=== PATIENT | male | born 1945 | race Caucasian/White ===

== ENCOUNTER 2018-12-04 09:21 | Inpatient (IN) ==
[2018-12-04] MEDS ORDERED: *HR* Morphine Immed Rel 15 MG TABLET PO STA (09:34)
--- NOTE | 2018-12-04 09:38 | Emergency Department Note ---
Disposition Clinical Impression: Hematoma of right lower extremity Qualifiers: Encounter type: initial encounter Qualified Code(s): S80.11XA - Contusion of right lower leg, initial encounter UTI (urinary tract infection) Qualifiers: Urinary tract infection type: site unspecified Hematuria presence: without hematuria Qualified Code(s): N39.0 - Urinary tract infection, site not specified Disposition: Admitted As Inpatient Condition: Fair Time of Disposition: 12:01 Fall HPI - General Chief Complaint: ED Fall Stated Complaint: hip pain,fall Time Seen by Provider: 12/04/18 09:29 Source: patient, EMS Mode of arrival: EMS Limitations: no limitations Nursing Notes Reviewed: Yes Vital Signs Reviewed: Yes - History of Present Illness HPI Narrative: 73-year-old male past medical history of chronic neuropathy for greater than 40 years, diabetes for the past 2 years, atrial fibrillation treated with Xarelto presenting for sequela of fall injury accounted last evening. Patient states that his peripheral neuropathy appears to be worsening within the past 2 years and that he is experiencing multiple mechanical falls at home due to not being able to feel his feet. Patient states that he has had 3 falls within the last week. Fall experienced last evening onto his right hip, patient states his son was able to help him from the floor he did not strike his head he experienced no other trauma during the incident. Patient states that the right hip is become progressively more painful over the past day. Right hip is now significantly hypertonic to palpation of the musculature and exquisitely tender to palpation. Patient otherwise alert and oriented, no new lateralizing deficits appreciated, no other concerns or complaints at this time. Pt Subjective Complaint: fall Onset (ago): day(s) Fall From: standing Fall Witnessed: yes Place Fall Occurred: home Loss of Consciousness: none Prolonged Down Time?: no Symptoms Prior to Fall: none Context: tripped/slipped Location of injury: hip Severity: severe Severity scale (1-10): 9 Associated symptoms (after fall): Reports: denies - Related Data Home Medications Medication Instructions Recorded Confirmed Aspirin [Lo-Dose Aspirin EC] 81 mg PO DAILY 06/22/17 12/04/18 Gabapentin [Neurontin] 300 mg PO TID 06/22/17 12/04/18 Lisinopril [Zestril] 20 mg PO BID 06/22/17 12/04/18 Potassium Chloride [Kdur] 10 meq PO Q48H 06/22/17 12/04/18 Simvastatin [Zocor] 20 mg PO HS 06/22/17 12/04/18 Albuterol Sulfate [Albuterol 2 puff PO QID PRN 12/04/18 12/04/18 Inhaler] Alprostadil [[place]] 500 mcg UR AD PRN 12/04/18 12/04/18 Metformin HCl [Fortamet] 500 mg PO BID 12/04/18 12/04/18 Metoprolol Succinate [Toprol Xl] 25 mg PO DAILY 12/04/18 12/04/18 Potassium Chloride 20 meq PO Q48H 12/04/18 12/04/18 Rivaroxaban [Xarelto] 20 mg PO DAILY 12/04/18 12/04/18 Sertraline [Zoloft] 75 mg PO DAILY 12/04/18 12/04/18 Spironolactone [Aldactone] 25 mg PO DAILY 12/04/18 12/04/18 Tiotropium [Spiriva] 1 puff PO DAILY 12/04/18 12/04/18 Allergies Allergy/AdvReac Type Severity Reaction Status Date / Time No Known Allergies Allergy Verified 12/04/18 09:45 Review of Systems: See history of present illness for further detail. Constitutional: Denies: fever, chills HEENT: Denies dysphagia/odynophagia, lymphadenopathy Cardiovascular: Denies: chest pain Respiratory: Denies: dyspnea, cough, hemoptysis Gastrointestinal: Denies: abdominal pain, nausea, vomiting, diarrhea, constipation, hematemesis, melena, hematochezia Genitourinary: Denies: hematuria Musculoskeletal: Patient admits to significant right hip pain and swelling. Denies: back pain, neck pain Neurological: Denies: headache, weakness, lightheadedness/dizziness, numbness, paresthesias, difficulty with ambulation. Endocrine: Denies: fatigue All systems ED: reviewed and negative except as stated. Review of Systems: As Per HPI Fall PMH - Past Medical History Medical history: Reports: non-contributory, atrial fibrillation, diabetes, hypertension Psychiatric history: Reports: no psych history - Social History Smoking Status: Never smoker Alcohol use: Reports: none Drug use: Reports: none Physical Exam General: Patient is awake, [id number] Airway: Airway is patent. Patient is phonating appropriately without conversational dyspnea Breathing: Non-tachypnic, non-labored Circulation: No significant external hemorrhage, extremity pulses intact and strong x 4, no pallor Head: No deformities, contusions, abrasions, punctures/penetrations, romero, tend erness, lacerations or swelling Eyes: PERRL, EOMI, no nystagmus, mydriasis, miosis. No entrapment, no raccoon eyes, no kostas-orbital tenderness Ears: No otorrhea, external exam normal, no battles sign, no hemotympanum, no mastoid tenderness Nose: No CSF rhinorrhea, no obvious fracture, no epistaxis Mouth: Dentition normal Throat: Trachea midline, anterior neck supple without swelling Neck: No midline cervical tenderness, no crepitus, no step offs Back: No midline tenderness, no deformities, contusions, abrasions, pu nctures/penetrations, romero, tenderness, lacerations or swelling Chest: Symmetric chest rise, no paradoxical motion, no deformities, contusions, abrasions, punctures/penetrations, romero, tenderness, lacerations or swelling Heart: RRR, S1 + S2, no S3 or S4, no murmurs, gallops, or rubs Lungs: CTAB, no wheezes, rhonchi, or stridor Abdomen: No deformities, contusions, abrasions, punctures/penetrations, romero, tenderness/guarding/rebound, lacerations or swelling. Bowel sounds normal. Pelvis: Pelvis appears stable, significant muscular hypertonicity throughout the right hip complexes. Tenderness to palpation. No deformities, contusions, abrasions, puncture/penetrations, romero, lacerations or swelling appreciated. Extremities: No deformities, contusions, abrasions, punctures/penetrations, romero, tenderness, lacerations or swelling - General Limitations: no limitations General appearance: alert, in no apparent distress Course Course Narrative: CT scan of the right hip without contrast Immediate release morphine for the management of patient's pain CBC, BMP, POC glucose. Vital Signs Temperature 99.4 F 12/04/18 09:28 Pulse Rate 91 12/04/18 09:28 Respiratory Rate 18 12/04/18 09:28 Blood Pressure 113/76 12/04/18 09:28 O2 Sat by Pulse Oximetry 98 12/04/18 09:28 Temperature 99.4 F 12/04/18 09:28 Pulse Rate 94 12/04/18 11:12 Respiratory Rate 18 12/04/18 11:12 Blood Pressure 137/79 12/04/18 11:12 O2 Sat by Pulse Oximetry 100 12/04/18 11:12 Oxygen Delivery Oxygen Delivery Room Air Fall - MDM Narrative Medical decision making narrative: Patient with large hematoma formation over the right hip complex Patient is unable to ambulate at this time states he does not feel safe with discharge home Patient will be admitted to hospitalist medicine service for further management of right hip injury Discussed plan with hospitalist for PT, OT, social services specialist consult for further management of patient's ambulatory issues Patient verbalizes understanding and agreement with this plan Patient was finding of UTI on urinalysis treated with 1 g Rocephin here in ED. Dr. Martell accepting admission - Lab Data Lab results reviewed: Yes I reviewed the patient's lab results. Result diagrams: 12/04/18 09:41 12/04/18 09:41 Lab Results 12/04/18 12/04/18 12/04/18 Range/Units 09:40 09:41 09:41 WBC 9.6 (4.3-11.1) K/mcL RBC 3.42 L (4.19-5.50) M/mcL Hgb 11.0 L (12.9-16.9) g/dL Hct 33.2 L (37.5-50.1) % MCV 97.1 (83.0-100.0) fL MCH 32.2 (28.0-33.3) pg MCHC 33.1 (31.6-35.5) g/dL RDW 12.2 (11.5-14.5) % Plt Count 174 (140-400) K/mcL MPV 10.8 (9.4-12.4) fL Immature Gran % 0.2 (0-4) % Seg Neutrophils % 79.3 % Lymphocytes % 8.3 % Monocytes % 10.9 % Eosinophils % 1.1 % Basophils % 0.2 % Neutrophils # 7.6 (1.6-8.9) K/mcL Lymphocytes # 0.8 (0.6-4.6) K/mcL Monocytes # 1.0 (0.0-1.3) K/mcL Eosinophils # 0.1 (0.0-0.6) K/mcL Basophils # 0.0 (0.0-0.2) K/mcL Sodium 137 (136-145) mEq/L Potassium 4.3 (3.5-5.1) mEq/L Chloride 102 (98-107) mEq/L Carbon Dioxide 26 (23-29) mEq/L BUN 19 (8-23) mg/dL Creatinine 0.97 (0.70-1.30) mg/dL Est GFR ( Amer) > 60 (> 60) Est GFR (Non-Af Amer) > 60 (> 60) BUN/Creatinine Ratio 20 (6-26) Glucose 146 H (70-105) mg/dL Calculated Osmolality 289 (280-300) Calcium 8.7 (8.6-10.3) mg/dL Urine Color Yellow (Yellow) Urine Clarity Hazy (Clear) Urine pH 6.5 (5.0-8.0) pH Units Ur Specific [place] 1.018 (1.010-1.025) Urine Protein 30 H (Neg-Trace) mg/dL Urine Glucose (UA) Normal (Normal) mg/dL Urine Ketones Negative (Negative) mg/dL Urine Blood Large H (Negative) Urine Nitrite Positive A (Negative) Urine Bilirubin Negative (Negative) Urine Urobilinogen Normal (Normal) mg/dL Ur Leukocyte Esterase Large H (Negative) Urine Microscopic RBC TNTC H (0-3) per hpf Urine Microscopic WBC TNTC H (0-3) per hpf Ur Squamous Epith Cells Few (None-Few) per lpf Urine Bacteria Many H (None-Few) per hpf Hyaline Casts None Seen (None-Few) per lpf Ur Culture Indicated? YES A (NO) - Radiology Data Radiology results reviewed: Yes I reviewed the patient's radiology results. Hip CT 12/04/18 09:35 IMPRESSION: Large hyperdense collection overlying the right hip most consistent with hematoma and centered in the gluteus ubaldo muscle. This measures approximately 12 x 9 x 8 cm. Clinical follow up to resolution is suggested. No acute osseous abnormality. D/ / 12/04/2018 10:45:50 Héctor Garcia MD / alexia Interpreting Provider: Héctor Garcia MD
--- NOTE | 2018-12-04 09:50 | Emergency Department Note ---
Disposition Clinical Impression: Hematoma of right lower extremity Qualifiers: Encounter type: initial encounter Qualified Code(s): S80.11XA - Contusion of right lower leg, initial encounter UTI (urinary tract infection) Qualifiers: Urinary tract infection type: site unspecified Hematuria presence: without hematuria Qualified Code(s): N39.0 - Urinary tract infection, site not specified Disposition: Admitted As Inpatient Condition: Fair Forms: ED Satisfaction Letter Time of Disposition: 11:25 Fall HPI - General Chief Complaint: ED Fall Stated Complaint: hip pain,fall Time Seen by Provider: 12/04/18 09:29 Source: patient, EMS Mode of arrival: EMS - History of Present Illness Place Fall Occurred: home Context: tripped/slipped Associated symptoms (after fall): Reports: denies - Related Data Home Medications Medication Instructions Recorded Confirmed Aspirin 06/22/17 Gabapentin 06/22/17 Lisinopril 06/22/17 Potassium Chloride 06/22/17 Simvastatin 06/22/17 Xarelto 06/22/17 06/22/17 hydroCHLOROthiazide 06/22/17 Previous Rx's Medication Instructions Recorded Doxycycline 100 mg PO BID #20 capsule 06/22/17 Allergies Allergy/AdvReac Type Severity Reaction Status Date / Time No Known Allergies Allergy Verified 12/04/18 09:45 Fall PMH - Past Medical History Medical history: Reports: non-contributory, atrial fibrillation, diabetes, hypertension Psychiatric history: Reports: no psych history - Social History Smoking Status: Never smoker Alcohol use: Reports: none Drug use: Reports: none Physical Exam - General Limitations: no limitations General appearance: alert, in no apparent distress Course Vital Signs Temperature 99.4 F 12/04/18 09:28 Pulse Rate 91 12/04/18 09:28 Respiratory Rate 18 12/04/18 09:28 Blood Pressure 113/76 12/04/18 09:28 O2 Sat by Pulse Oximetry 98 12/04/18 09:28 Temperature 99.4 F 12/04/18 09:28 Pulse Rate 94 12/04/18 11:12 Respiratory Rate 18 12/04/18 11:12 Blood Pressure 137/79 12/04/18 11:12 O2 Sat by Pulse Oximetry 100 12/04/18 11:12 Oxygen Delivery Oxygen Delivery Room Air Fall - Lab Data Result diagrams: 12/04/18 09:41 12/04/18 09:41 Lab Results 12/04/18 12/04/18 12/04/18 Range/Units 09:40 09:41 09:41 WBC 9.6 (4.3-11.1) K/mcL RBC 3.42 L (4.19-5.50) M/mcL Hgb 11.0 L (12.9-16.9) g/dL Hct 33.2 L (37.5-50.1) % MCV 97.1 (83.0-100.0) fL MCH 32.2 (28.0-33.3) pg MCHC 33.1 (31.6-35.5) g/dL RDW 12.2 (11.5-14.5) % Plt Count 174 (140-400) K/mcL MPV 10.8 (9.4-12.4) fL Immature Gran % 0.2 (0-4) % Seg Neutrophils % 79.3 % Lymphocytes % 8.3 % Monocytes % 10.9 % Eosinophils % 1.1 % Basophils % 0.2 % Neutrophils # 7.6 (1.6-8.9) K/mcL Lymphocytes # 0.8 (0.6-4.6) K/mcL Monocytes # 1.0 (0.0-1.3) K/mcL Eosinophils # 0.1 (0.0-0.6) K/mcL Basophils # 0.0 (0.0-0.2) K/mcL Sodium 137 (136-145) mEq/L Potassium 4.3 (3.5-5.1) mEq/L Chloride 102 (98-107) mEq/L Carbon Dioxide 26 (23-29) mEq/L BUN 19 (8-23) mg/dL Creatinine 0.97 (0.70-1.30) mg/dL Est GFR ( Amer) > 60 (> 60) Est GFR (Non-Af Amer) > 60 (> 60) BUN/Creatinine Ratio 20 (6-26) Glucose 146 H (70-105) mg/dL Calculated Osmolality 289 (280-300) Calcium 8.7 (8.6-10.3) mg/dL Urine Color Yellow (Yellow) Urine Clarity Hazy (Clear) Urine pH 6.5 (5.0-8.0) pH Units Ur Specific [place] 1.018 (1.010-1.025) Urine Protein 30 H (Neg-Trace) mg/dL Urine Glucose (UA) Normal (Normal) mg/dL Urine Ketones Negative (Negative) mg/dL Urine Blood Large H (Negative) Urine Nitrite Positive A (Negative) Urine Bilirubin Negative (Negative) Urine Urobilinogen Normal (Normal) mg/dL Ur Leukocyte Esterase Large H (Negative) Urine Microscopic RBC TNTC H (0-3) per hpf Urine Microscopic WBC TNTC H (0-3) per hpf Ur Squamous Epith Cells Few (None-Few) per lpf Urine Bacteria Many H (None-Few) per hpf Hyaline Casts None Seen (None-Few) per lpf Ur Culture Indicated? YES A (NO) Critical Care Time Critical Care Time: No Attestation Statement - Attestation Attestation: I examined this patient and my medical decision-making was reviewed with the Resident Physician. I agree with the documented findings, disposition and treatment plan as described except to the extent set forth below. Patient presents to the ED after a fall. Patient reports increased frequency and falls over the past week. Patient states he has neuropathy in his feet and he trips a lot. He landed on his right hip. Last night he had to have family come help him in the bed. He also has chronic right hip pain secondary to a leg length discrepancy. On examination is tenderness over that right hip. There is no swelling or ecchymosis. He allows Kevin rolling. There is spasm of the musculatures of the right thigh and gluteus. Plan. Basic generalized weakness workup and imaging of the hip. Patient with a large gluteal hematoma and a UTI. Unsafe for discharge with his frequent falls. Patient will be discharged. Hip CT 12/04/18 09:35 IMPRESSION: Large hyperdense collection overlying the right hip most consistent with hematoma and centered in the gluteus ubaldo muscle. This measures approximately 12 x 9 x 8 cm. Clinical follow up to resolution is suggested. No acute osseous abnormality. D/ / 12/04/2018 10:45:50 Héctor Garcia MD / alexia Interpreting Provider: Héctor Garcia MD
[2018-12-04 09:52] LABS: Basophils % 0.2 %; Eosinophils # 0.1 K/mcL (0.0-0.6); Eosinophils % 1.1 %; Hematocrit 33.2 % (37.5-50.1); Immature Granulocytes % 0.2 % (0-4); Lymphocytes # 0.8 K/mcL (0.6-4.6); Lymphocytes % 8.3 %; Mean Corpuscular HGB Conc 33.1 g/dL (31.6-35.5); Mean Corpuscular Hemoglobin 32.2 pg (28.0-33.3); Mean Corpuscular Volume 97.1 fL (83.0-100.0); Mean Platelet Volume 10.8 fL (9.4-12.4); Monocytes % 10.9 %; Neutrophils # 7.6 K/mcL (1.6-8.9); Platelet Count 174 K/mcL (140-400); Red Blood Count 3.42 M/mcL (4.19-5.50); Red Cell Distribution Width 12.2 % (11.5-14.5); Segmented Neutrophils % 79.3 %
[2018-12-04 09:55] LABS: Bilirubin,Urine Negative (Negative); Blood,Urine Large (Negative); Color,Urine Yellow (Yellow); Glucose,Urine (UA) Normal (Normal); Ketones,Urine Negative (Negative); Leukocyte Esterase,Urine Large (Negative); Nitrite,Urine Positive (Negative); PH,Urine 6.5 pH Units (5.0-8.0); Protein,Urine 30 mg/dL (Neg-Trace); Specific Gravity,Urine 1.018 (1.010-1.025); Urobilinogen,Urine Normal (Normal)
[2018-12-04 10:01] LABS: Bacteria,Urine Many per hpf (None-Few); Clarity,Urine Hazy (Clear); Hyaline Casts,Urine None Seen per lpf (None-Few); RBC,Urine TNTC per hpf (0-3); Squamous Epithelial Cell,Urine Few per lpf (None-Few); WBC,Urine TNTC per hpf (0-3)
[2018-12-04 10:46] LABS: BUN/Creatinine Ratio 20 (6-26); Blood Urea Nitrogen 19 mg/dL (8-23); Calcium 8.7 mg/dL (8.6-10.3); Carbon Dioxide 26 mEq/L (23-29); Chloride 102 mEq/L (98-107); Glucose 146 mg/dL (70-105); Osmolality,Calculated 289 (280-300); Potassium 4.3 mEq/L (3.5-5.1); Sodium 137 mEq/L (136-145); eGFR For Non-African Americans > 60 (> 60)
[2018-12-04] MEDS ORDERED: cefTRIAXone 1,000 MG in Water for inj. (sterile) 20 ML 10 ML IVP ONE (11:17)
--- NOTE | 2018-12-04 12:12 | Internal Med History&Physical ---
Date of Encounter: 12/07/18 Time of Encounter: 13:18 Internal Medicine - H&P: HPI Chief complaint: s/p fall History of present illness: Mr. Loza is a 73 year old male 73-year-old male past medical history of chronic neuropathy for greater than 40 years, diabetes for the past 2 years, atrial fibrillation treated with Xarelto presenting to the ER after he sustained an fa ll an hit his right hip, he denied hitting his head. The patient is complaining of worsening of her his peripheral neuropathy over the last 3 years and he no longer able to feel his feet. Patient states that the right hip is become progressively more painful over the past day. Patient now with large hematoma formation over the right hip and cannot ambulate, decision was made to admit the patient for PT and OT evaluation, his urine analysis is also has evidence of UTI, he was started in empiric antibiotics by the ER staff. Past Med Surg Social Fam HX - Past Medical History Medical history: non-contributory, atrial fibrillation, diabetes, hypertension Additional medical history: urinary problems Psychiatric history: no psych history - Past Surgical History Additional surgical history: prostate surgery - Social History Smoking Status: Never smoker Smokeless Tobacco Status: No Alcohol use: none Drug use: none - Family History Mother Hx Family Cardiac Disorders: Yes ([place]) Father Hx Family GI Disorders: Yes (Stomach cancer) Internal Medicine - H&P: Meds Aspirin [Lo-Dose Aspirin EC] 81 mg PO DAILY 06/22/17 [History] Gabapentin [Neurontin] 300 mg PO TID 06/22/17 [History] Lisinopril [Zestril] 20 mg PO BID 06/22/17 [History] Potassium Chloride [Kdur] 10 meq PO Q48H 06/22/17 [History] Simvastatin [Zocor] 20 mg PO HS 06/22/17 [History] Albuterol Sulfate [Albuterol Inhaler] 2 puff PO QID PRN 12/04/18 [History] Alprostadil [[place]] 500 mcg UR AD PRN 12/04/18 [History] Metformin HCl [Fortamet] 500 mg PO BID 12/04/18 [History] Metoprolol Succinate [Toprol Xl] 25 mg PO DAILY 12/04/18 [History] Potassium Chloride 20 meq PO Q48H 12/04/18 [History] Rivaroxaban [Xarelto] 20 mg PO DAILY 12/04/18 [History] Sertraline [Zoloft] 75 mg PO DAILY 12/04/18 [History] Spironolactone [Aldactone] 25 mg PO DAILY 12/04/18 [History] Tiotropium [Spiriva] 1 puff PO DAILY 12/04/18 [History] Allergy/AdvReac Type Severity Reaction Status Date / Time No Known Allergies Allergy Verified 12/04/18 09:45 All Systems PM: A 10-system review of systems was performed and is negative for pertinent findings except as documented above in the HPI. - Constitutional Vitals: Temp Pulse Resp BP Pulse Ox 99.4 F 94 18 137/79 100 12/04/18 09:28 12/04/18 11:12 12/04/18 11:12 12/04/18 11:12 12/04/18 11:12 Exam: General appearance: No acute distress, A&O X 3 Head exam: Atraumatic Eye exam: EOMI, PERRLA ENT exam: Moist oral mucosa Neck nontender, supple Respiratory exam: Clear to auscultation bilaterally Cardiovascular exam: Regular rate and rhythm, no systolic murmur Abdominal exam: Soft, nontender, nondistended, positive bowel sounds Extremities exam: Firm, tender skin area extending over right gluteal to groin and upper thigh Skin-no rash, warm, dry, intact Neurological exam: Alert, awake, oriented 3, CN II-XII intact, no focal deficits. No facial droop. Normal speech. Internal Med - H&P Results - Labs CBC & Chem 7: 12/07/18 06:09 12/05/18 03:33 Labs: Short CBC 12/04/18 Range/Units 09:41 WBC 9.6 (4.3-11.1) K/mcL Hgb 11.0 L (12.9-16.9) g/dL Hct 33.2 L (37.5-50.1) % Plt Count 174 (140-400) K/mcL Neutrophils # 7.6 (1.6-8.9) K/mcL BMP 12/04/18 09:41 Sodium 137 Potassium 4.3 Chloride 102 Carbon Dioxide 26 BUN 19 Creatinine 0.97 Glucose 146 H Calcium 8.7 Urine 12/04/18 Range/Units 09:40 Urine Color Yellow (Yellow) Urine Clarity Hazy (Clear) Urine pH 6.5 (5.0-8.0) pH Units Ur Specific [place] 1.018 (1.010-1.025) Urine Protein 30 H (Neg-Trace) mg/dL Urine Glucose (UA) Normal (Normal) mg/dL - Impressions ITS Impressions Hip CT 12/04/18 09:35 IMPRESSION: Large hyperdense collection overlying the right hip most consistent with hematoma and centered in the gluteus ubaldo muscle. This measures approximately 12 x 9 x 8 cm. Clinical follow up to resolution is suggested. No acute osseous abnormality. D/ / 12/04/2018 10:45:50 Héctor Garcia MD / alexia Interpreting Provider: Héctor Garcia MD - Assessment and Plan (1) Hematoma of right lower extremity Current Visit: Yes Status: Acute Assessment and plan: CT scan of the right lower extremity revealed Large hyperdense collection overlying the right hip most consistent with hematoma and centered in the glu teus ubaldo muscle. This measures approximately 12 x 9 x 8 cm. we will continue to monitor , and repeat images to follow up on evaluation is recommended , we will hold anticoagulation for now (2) UTI (urinary tract infection) Current Visit: Yes Status: Acute Assessment and plan: Vision urinalysis is evidence for UTI, start the patient on ceftriaxone, follow- up cultures and sensitivity and adjust antibiotic regimen accordingly Qualifiers: Urinary tract infection type: site unspecified Hematuria presence: without hematuria Qualified Code(s): N39.0 - Urinary tract infection, site not specified (3) Hypertension Current Visit: Yes Status: Acute Assessment and plan: We will continue antihypertensive medication, and monitor blood pressure while inpatient Qualifiers: Hypertension type: essential hypertension Qualified Code(s): I10 - Essential (primary) hypertension (4) Diabetes Current Visit: Yes Status: Acute Assessment and plan: We will hold metformin and start the patient insulin sliding scale with moderate coverage Qualifiers: Diabetes mellitus type: type 2 Diabetes mellitus half-way insulin use: without intermediate frame tender use Diabetes mellitus complication status: with unspecified complications Qualified Code(s): E11.8 - Type 2 diabetes mellitus with unspecified complications (5) Atrial fibrillation Current Visit: Yes Status: Acute Assessment and plan: We will hold anticoagulation for now, given the significant right lower extremity hematoma after fall Qualifiers: Atrial fibrillation type: chronic Qualified Code(s): I48.2 - Chronic atrial fibrillation (6) DVT prophylaxis Current Visit: Yes Status: Acute Assessment and plan: We will place SCDs - Time Spent With Patient Total time spent is greater than 50% in coordination of care (as documented) at patient's floor/unit and/or counseling patient:
[2018-12-04] MEDS ORDERED: Acetaminophen 325 MG TABLET PO PRN (12:13)
[2018-12-04] MEDS ORDERED: Naloxone 0.4 MG/ML INJ IVP PRN (12:13)
[2018-12-04] MEDS ORDERED: Ondansetron ODT 4 MG TAB.RAPDIS SL PRN (12:13)
[2018-12-04] MEDS: *HR* HYDROcodone/Acet 5/325 mg TABLET PO PRN ×2 (17:09→23:19)
[2018-12-04] MEDS: Lisinopril 20 MG TABLET PO SCH (20:32)
[2018-12-04] MEDS: Gabapentin 300 MG CAPSULE PO SCH (20:32)
[2018-12-05 03:56] LABS: Basophils % 0.1 %; Eosinophils # 0.2 K/mcL (0.0-0.6); Hematocrit 30.6 % (37.5-50.1); Hemoglobin 10.2 g/dL (12.9-16.9); Immature Granulocytes % 0.2 % (0-4); Lymphocytes # 1.4 K/mcL (0.6-4.6); Lymphocytes % 16.3 %; Mean Corpuscular HGB Conc 33.3 g/dL (31.6-35.5); Mean Corpuscular Hemoglobin 32.2 pg (28.0-33.3); Mean Corpuscular Volume 96.5 fL (83.0-100.0); Mean Platelet Volume 10.7 fL (9.4-12.4); Monocytes # 1.1 K/mcL (0.0-1.3); Monocytes % 13.2 %; Neutrophils # 5.8 K/mcL (1.6-8.9); Platelet Count 172 K/mcL (140-400); Red Blood Count 3.17 M/mcL (4.19-5.50); Red Cell Distribution Width 12.2 % (11.5-14.5); Segmented Neutrophils % 68.2 %
[2018-12-05 04:02] LABS: INR 1.2; Prothrombin Time 13.3 Seconds (9.4-12.1)
[2018-12-05 04:05] LABS: Activated Partial Thrombo Time 23.4 Seconds (26.0-36.0); Alanine Aminotransferase 9 Units/L (7-52); Albumin 3.5 g/dL (3.5-5.7); Albumin/Globulin Ratio 1.3 (1.1-2.2); Alkaline Phosphatase 44 Units/L (34-104); Aspartate Amino Transferase 12 Units/L (13-39); BUN/Creatinine Ratio 18 (6-26); Bilirubin,Total 0.8 mg/dL (0.3-1.0); Blood Urea Nitrogen 21 mg/dL (8-23); Calcium 8.6 mg/dL (8.6-10.3); Carbon Dioxide 28 mEq/L (23-29); Chloride 103 mEq/L (98-107); Chol/HDL Ratio 3.3 (0-4.9); Cholesterol 114 mg/dL (< 200); Globulin 2.6 g/dL (2.4-3.5); Glucose 158 mg/dL (70-105); HDL Cholesterol 35 mg/dL (40-59); LDL Cholesterol,Calculated 57 mg/dL (0-99); Magnesium 2.1 mg/dL (1.6-2.6); Osmolality,Calculated 294 (280-300); Phosphorous 3.6 mg/dL (2.7-4.5); Potassium 4.4 mEq/L (3.5-5.1); Sodium 139 mEq/L (136-145); Total Protein 6.1 g/dL (6.4-8.9); Triglycerides 109 mg/dL (< 150); eGFR For Non-African Americans > 60 (> 60)
[2018-12-05] MEDS ORDERED: *HR* Dextrose 50 % in Water (Syg) 50 ML SYRINGE IVP PRN (08:18)
[2018-12-05] MEDS ORDERED: Dextrose Gel 15 GM/37.5 ML TUBE PO PRN ×2 (08:18)
[2018-12-05] MEDS ORDERED: D5% in Water 1,000 ML IVC PRN (08:18)
--- NOTE | 2018-12-05 08:45 | Internal Med Progress Note ---
Hospitalist Progress Note - Encounter Date of Encounter: 12/05/18 Time of Encounter: 08:45 - Subjective Interval History: No acute event overnight. Still has pain on right lower extremity in the gluteal and thigh region but slight better today. Review the lab with a stable hemoglobin. Review of the vitals with stable Patient denies nausea or fever chills headaches chest pain short of breath metaplasia hematemesis melena diarrhea - Exam Vitals: Temp Pulse Resp BP Pulse Ox 97.8 F 92 16 129/80 95 12/05/18 07:06 12/05/18 07:06 12/05/18 07:06 12/05/18 07:06 12/05/18 07:06 Exam: General appearance: No acute distress, A&O X 3 Head exam: Atraumatic Eye exam: EOMI, PERRLA ENT exam: Moist oral mucosa Neck nontender, supple Respiratory exam: Clear to auscultation bilaterally Cardiovascular exam: Regular rate and rhythm, no systolic murmur Abdominal exam: Soft, nontender, nondistended, positive bowel sounds Extremities exam: Right lower extremity-brace. RLE- weakness could be due to pain. Firm, tender skin area extending over right gluteal to groin and upper thigh Skin-no rash, warm, dry, intact Neurological exam: Alert, awake, oriented 3, CN II-XII intact, no focal deficits. No facial droop. Normal speech. - Assessment and Plan (1) Hematoma of right lower extremity Current Visit: Yes Status: Acute Assessment and Plan: CT scan of the right lower extremity revealed Large hyperdense collection overlying the right hip most consistent with hematoma and centered in the gluteus ubaldo muscle. This measures approximately 12 x 9 x 8 cm. consulted general surgeon for further evaluation and recommendation to his start ant icoagulation. Monitor clinically and hemoglobin. PTOT onboard Plan for discharge patient had 1-2 days once cleared from surgical standpoint and recommendation from PTOT. IMPRESSION: Large hyperdense collection overlying the right hip most consistent with hematoma and centered in the gluteus ubaldo muscle. This measures approximately 12 x 9 x 8 cm. Clinical follow up to resolution is suggested. No acute osseous abnormality. (2) UTI (urinary tract infection) Current Visit: Yes Status: Acute Assessment and Plan: urinalysis is evidence for UTI, start the patient on ceftriaxone Urine culture with no growth yet. (3) Hypertension Current Visit: Yes Status: Acute Assessment and Plan: We will continue antihypertensive medication, and monitor blood pressure while inpatient. Well controlled (4) Diabetes Current Visit: Yes Status: Acute Assessment and Plan: We will hold metformin and start the patient insulin sliding scale with moderate coverage Accu-Chek. Diabetic diet (5) Atrial fibrillation Current Visit: Yes Status: Acute Assessment and Plan: We will hold anticoagulation for now, given the significant right lower extremity hematoma after fall. Normal sinus rhythm (6) DVT prophylaxis Current Visit: Yes Status: Acute - Time Spent with Patient Total time spent is greater than 50% in coordination of care (as documented) at patient's floor/unit and/or counseling patient: 25 - 35 minutes Plan of Care Discussed with: patient Internal Medicine: Result - Labs CBC & Chem 7: 12/05/18 03:33 12/05/18 03:33 Labs: Short CBC 12/04/18 12/05/18 Range/Units 09:41 03:33 WBC 9.6 8.5 (4.3-11.1) K/mcL Hgb 11.0 L 10.2 L (12.9-16.9) g/dL Hct 33.2 L 30.6 L (37.5-50.1) % Plt Count 174 172 (140-400) K/mcL Neutrophils # 7.6 5.8 (1.6-8.9) K/mcL BMP 12/04/18 12/05/18 09:41 03:33 Sodium 137 139 Potassium 4.3 4.4 Chloride 102 103 Carbon Dioxide 26 28 BUN 19 21 Creatinine 0.97 1.18 Glucose 146 H 158 H Calcium 8.7 8.6 Liver Function 12/05/18 Range/Units 03:33 Total Bilirubin 0.8 (0.3-1.0) mg/dL AST 12 L (13-39) Units/L ALT 9 (7-52) Units/L Alkaline Phosphatase 44 (34-104) Units/L Albumin 3.5 (3.5-5.7) g/dL Urine 12/04/18 Range/Units 09:40 Urine Color Yellow (Yellow) Urine Clarity Hazy (Clear) Urine pH 6.5 (5.0-8.0) pH Units Ur Specific [place] 1.018 (1.010-1.025) Urine Protein 30 H (Neg-Trace) mg/dL Urine Glucose (UA) Normal (Normal) mg/dL - ABG Interpretation ABG results: PT/INR, D-dimer PT 13.3 Seconds (9.4-12.1) H 12/05/18 03:33 - Impressions Impressions Hip CT 12/04/18 09:35 IMPRESSION: Large hyperdense collection overlying the right hip most consistent with hematoma and centered in the gluteus ubaldo muscle. This measures approximately 12 x 9 x 8 cm. Clinical follow up to resolution is suggested. No acute osseous abnormality. D/ / 12/04/2018 10:45:50 Héctor Garcia MD / alexia Interpreting Provider: Héctor Garcia MD Consult Discharge Plan - Plan [facility]errals: [facility] [Primary Care Provider] - (1) Hematoma of right lower extremity Qualifiers: Encounter type: initial encounter Qualified Code(s): S80.11XA - Contusion of right lower leg, initial encounter (2) UTI (urinary tract infection) Qualifiers: Urinary tract infection type: site unspecified Hematuria presence: without hematuria Qualified Code(s): N39.0 - Urinary tract infection, site not specified (3) Hypertension Qualifiers: Hypertension type: essential hypertension Qualified Code(s): I10 - Essential (primary) hypertension (4) Diabetes Qualifiers: Diabetes mellitus type: type 2 Diabetes mellitus [facility] insulin use: without terminal press operator use Diabetes mellitus complication status: with unspecified complications Qualified Code(s): E11.8 - Type 2 diabetes mellitus with unspecified complications
[2018-12-05 09:16] LABS: Estimated Average Glucose 131 mg/dl; Hemoglobin A1C 6.2 %
[2018-12-05] MEDS: cefTRIAXone 1,000 MG in Water for inj. (sterile) 20 ML 10 ML IVP SCH (10:28)
--- NOTE | 2018-12-05 10:28 | AcuteCare Surgery Consult Note ---
<AbigailandreaJavier N - Last Filed: 12/05/18 10:26> Date of Encounter: 12/05/18 Time of Encounter: 10:26 Assessment and Plan (1) Hematoma of right lower extremity Current Visit: Yes Status: Acute 73-year-old male with a history of lower extremity neuropathy with progressively worsening weakness and difficulty with ambulation admitted after sustaining a fall injuring his right hip with CT imaging significant for large right gluteal hematoma. No surgical intervention recommended at this time for drainage of hematoma. May restart anticoagulation if no further active bleeding is suspected. 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 fib on the relative who was admitted to the hospital after sustaining a fall and injuring his right hip. CT imaging found large right gluteal hematoma measuring 12 x 9 x 8 cm. Future surgery was consulted for evaluation and recommendations. On evaluation today patient endorses increasing difficulty with ambulation and standing from seated position. He also expresses progressively worsening weakness. Past Med Surg Social Fam HX - Past Medical History Medical history: non-contributory, atrial fibrillation, diabetes, hypertension Additional medical history: urinary problems Psychiatric history: no psych history - Past Surgical History Additional surgical history: prostate surgery - Social History Smoking Status: Never smoker Smokeless Tobacco Status: No Alcohol use: none Drug use: none - Family History Mother Hx Family Cardiac Disorders: Yes (PR) Father Hx Family GI Disorders: Yes (Stomach cancer) Medications and Allergies Aspirin [Lo-Dose Aspirin EC] 81 mg PO DAILY 06/22/17 [History] Gabapentin [Neurontin] 300 mg PO TID 06/22/17 [History] Lisinopril [Zestril] 20 mg PO BID 06/22/17 [History] Potassium Chloride [Kdur] 10 meq PO Q48H 06/22/17 [History] Simvastatin [Zocor] 20 mg PO HS 06/22/17 [History] Albuterol Sulfate [Albuterol Inhaler] 2 puff PO QID PRN 12/04/18 [History] Alprostadil [Deer] 500 mcg UR AD PRN 12/04/18 [History] Metformin HCl [Fortamet] 500 mg PO BID 12/04/18 [History] Metoprolol Succinate [Toprol Xl] 25 mg PO DAILY 12/04/18 [History] Potassium Chloride 20 meq PO Q48H 12/04/18 [History] Rivaroxaban [Xarelto] 20 mg PO DAILY 12/04/18 [History] Sertraline [Zoloft] 75 mg PO DAILY 12/04/18 [History] Spironolactone [Aldactone] 25 mg PO DAILY 12/04/18 [History] Tiotropium [Spiriva] 1 puff PO DAILY 12/04/18 [History] Allergy/AdvReac Type Severity Reaction Status Date / Time No Known Allergies Allergy Verified 12/04/18 09:45 Review of Systems All systems PM: The remainder of the systems were reviewed and are negative - Constitutional no chills, no fever(s) - Cardiovascular no chest pain - Respiratory no dyspnea - Gastrointestinal no abdominal pain - Musculoskeletal abnormal gait, deformity - Integumentary no rash - Neurological frequent falls General Surgery Exam Initial Vital Signs Temp Pulse Resp BP Pulse Ox 99.4 F 91 18 113/76 98 12/04/18 09:28 12/04/18 09:28 12/04/18 09:28 12/04/18 09:28 12/04/18 09:28 - General physical appearance well developed, well nourished - Eyes PERRL, normal ocular movement - ENT normal pinna, normal nares - Neck trachea midline, no venous distension - Respiratory normal expansion, normal respiratory effort - Cardiovascular Cardiovascular exam: Present: RRR. Absent: murmurs - Abdomen Abdomen general surgery: Present: bowel sounds present, soft, non tender - Integumentary Integumentary general surgery: Present: warm and dry - Musculoskeletal Present: other (Brace on right lower extremity. Patient does note will for studies bloody complains of significant weakness of lower extremities as well as discrepancy in lower extremity leg lengths.) - Psychiatric Psychiatric general surgery: Present: A&Ox3, appropriate Exam Initial Vital Signs Temp Pulse Resp BP Pulse Ox 99.4 F 91 18 113/76 98 12/04/18 09:28 12/04/18 09:28 12/04/18 09:28 12/04/18 09:28 12/04/18 09:28 Results - Labs 12/05/18 03:33 12/05/18 03:33 Abnormal lab results RBC 3.17 M/mcL (4.19-5.50) L 12/05/18 03:33 Hgb 10.2 g/dL (12.9-16.9) L 12/05/18 03:33 Hct 30.6 % (37.5-50.1) L 12/05/18 03:33 PT 13.3 Seconds (9.4-12.1) H 12/05/18 03:33 APTT 23.4 Seconds (26.0-36.0) L 12/05/18 03:33 Glucose 158 mg/dL (70-105) H 12/05/18 03:33 POC Glucose 181 mg/dL (70-99) H 12/04/18 19:47 6.2 % (-5.6) H 12/05/18 03:33 AST 12 Units/L (13-39) L 12/05/18 03:33 6.1 g/dL (6.4-8.9) L 12/05/18 03:33 35 mg/dL (40-59) L 12/05/18 03:33 30 mg/dL (Neg-Trace) H 12/04/18 09:40 Large (Negative) H 12/04/18 09:40 Positive (Negative) A 12/04/18 09:40 Ur Leukocyte Esterase Large (Negative) H 12/04/18 09:40 TNTC per hpf (0-3) H 12/04/18 09:40 TNTC per hpf (0-3) H 12/04/18 09:40 Many per hpf (None-Few) H 12/04/18 09:40 Ur Culture Indicated? YES (NO) A 12/04/18 09:40 Diabetes panel 12/04/18 12/05/18 12/05/18 Range/Units 09:41 03:33 03:33 Sodium 137 139 (136-145) mEq/L Potassium 4.3 4.4 (3.5-5.1) mEq/L Chloride 102 103 (98-107) mEq/L Carbon Dioxide 26 28 (23-29) mEq/L BUN 19 21 (8-23) mg/dL Creatinine 0.97 1.18 (0.70-1.30) mg/dL Glucose 146 H 158 H (70-105) mg/dL Hemoglobin A1c 6.2 H ( - 5.6) % Calcium 8.7 8.6 (8.6-10.3) mg/dL AST 12 L (13-39) Units/L ALT 9 (7-52) Units/L Alkaline Phosphatase 44 (34-104) Units/L Albumin 3.5 (3.5-5.7) g/dL Triglycerides 109 (< 150) mg/dL HDL Cholesterol 35 L (40-59) mg/dL Calcium panel 12/04/18 12/05/18 Range/Units 09:41 03:33 Calcium 8.7 8.6 (8.6-10.3) mg/dL Phosphorus 3.6 (2.7-4.5) mg/dL Albumin 3.5 (3.5-5.7) g/dL Pituitary panel 12/04/18 12/05/18 Range/Units 09:41 03:33 Sodium 137 139 (136-145) mEq/L Potassium 4.3 4.4 (3.5-5.1) mEq/L Chloride 102 103 (98-107) mEq/L Carbon Dioxide 26 28 (23-29) mEq/L BUN 19 21 (8-23) mg/dL Creatinine 0.97 1.18 (0.70-1.30) mg/dL Glucose 146 H 158 H (70-105) mg/dL Calcium 8.7 8.6 (8.6-10.3) mg/dL Adrenal panel 12/04/18 12/05/18 Range/Units 09:41 03:33 Sodium 137 139 (136-145) mEq/L Potassium 4.3 4.4 (3.5-5.1) mEq/L Chloride 102 103 (98-107) mEq/L Carbon Dioxide 26 28 (23-29) mEq/L BUN 19 21 (8-23) mg/dL Creatinine 0.97 1.18 (0.70-1.30) mg/dL Glucose 146 H 158 H (70-105) mg/dL Calcium 8.7 8.6 (8.6-10.3) mg/dL Total Bilirubin 0.8 (0.3-1.0) mg/dL AST 12 L (13-39) Units/L ALT 9 (7-52) Units/L Alkaline Phosphatase 44 (34-104) Units/L Albumin 3.5 (3.5-5.7) g/dL All other labs normal. Consult Discharge Plan - Plan [facility]errals: [facility] [Primary Care Provider[facility] - <Marita Rodriguezn Ely - Last Filed: 12/05/18 11:01> Date of Encounter: 12/05/18 Review of Systems All systems PM: The remainder of the systems were reviewed and are negative General Surgery Exam Initial Vital Signs Temp Pulse Resp BP Pulse Ox 99.4 F 91 18 113/76 98 12/04/18 09:28 12/04/18 09:28 12/04/18 09:28 12/04/18 09:28 12/04/18 09:28 Exam Initial Vital Signs Temp Pulse Resp BP Pulse Ox 99.4 F 91 18 113/76 98 12/04/18 09:28 12/04/18 09:28 12/04/18 09:28 12/04/18 09:28 12/04/18 09:28 Results - Labs 12/05/18 03:33 12/05/18 03:33 Abnormal lab results RBC 3.17 M/mcL (4.19-5.50) L 12/05/18 03:33 Hgb 10.2 g/dL (12.9-16.9) L 12/05/18 03:33 Hct 30.6 % (37.5-50.1) L 12/05/18 03:33 PT 13.3 Seconds (9.4-12.1) H 12/05/18 03:33 APTT 23.4 Seconds (26.0-36.0) L 12/05/18 03:33 Glucose 158 mg/dL (70-105) H 12/05/18 03:33 POC Glucose 181 mg/dL (70-99) H 12/04/18 19:47 6.2 % (-5.6) H 12/05/18 03:33 AST 12 Units/L (13-39) L 12/05/18 03:33 6.1 g/dL (6.4-8.9) L 12/05/18 03:33 35 mg/dL (40-59) L 12/05/18 03:33 30 mg/dL (Neg-Trace) H 12/04/18 09:40 Large (Negative) H 12/04/18 09:40 Positive (Negative) A 12/04/18 09:40 Ur Leukocyte Esterase Large (Negative) H 12/04/18 09:40 TNTC per hpf (0-3) H 12/04/18 09:40 TNTC per hpf (0-3) H 12/04/18 09:40 Many per hpf (None-Few) H 12/04/18 09:40 Ur Culture Indicated? YES (NO) A 12/04/18 09:40 Diabetes panel 12/05/18 12/05/18 Range/Units 03:33 03:33 Sodium 139 (136-145) mEq/L Potassium 4.4 (3.5-5.1) mEq/L Chloride 103 (98-107) mEq/L Carbon Dioxide 28 (23-29) mEq/L BUN 21 (8-23) mg/dL Creatinine 1.18 (0.70-1.30) mg/dL Glucose 158 H (70-105) mg/dL Hemoglobin A1c 6.2 H ( - 5.6) % Calcium 8.6 (8.6-10.3) mg/dL AST 12 L (13-39) Units/L ALT 9 (7-52) Units/L Alkaline Phosphatase 44 (34-104) Units/L Albumin 3.5 (3.5-5.7) g/dL Triglycerides 109 (< 150) mg/dL HDL Cholesterol 35 L (40-59) mg/dL Calcium panel 12/05/18 Range/Units 03:33 Calcium 8.6 (8.6-10.3) mg/dL Phosphorus 3.6 (2.7-4.5) mg/dL Albumin 3.5 (3.5-5.7) g/dL Pituitary panel 12/05/18 Range/Units 03:33 Sodium 139 (136-145) mEq/L Potassium 4.4 (3.5-5.1) mEq/L Chloride 103 (98-107) mEq/L Carbon Dioxide 28 (23-29) mEq/L BUN 21 (8-23) mg/dL Creatinine 1.18 (0.70-1.30) mg/dL Glucose 158 H (70-105) mg/dL Calcium 8.6 (8.6-10.3) mg/dL Adrenal panel 12/05/18 Range/Units 03:33 Sodium 139 (136-145) mEq/L Potassium 4.4 (3.5-5.1) mEq/L Chloride 103 (98-107) mEq/L Carbon Dioxide 28 (23-29) mEq/L BUN 21 (8-23) mg/dL Creatinine 1.18 (0.70-1.30) mg/dL Glucose 158 H (70-105) mg/dL Calcium 8.6 (8.6-10.3) mg/dL Total Bilirubin 0.8 (0.3-1.0) mg/dL AST 12 L (13-39) Units/L ALT 9 (7-52) Units/L Alkaline Phosphatase 44 (34-104) Units/L Albumin 3.5 (3.5-5.7) g/dL All other labs normal. - Attending Attestation I examined this patient and my medical decision-making was reviewed with the Resident Physician. I agree with the documented findings, disposition and treatment plan as described except to the extent set forth below. The patient is seen and evaluated on an acute care surgery rounds with the resident. I personally reviewed the CAT scan demonstrating a intramuscular hem atoma on the right hip. 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 This limits his ability to stand. This resulted in a fall while he was on Coumadin. The hematoma is in an area of trauma. There is no evidence of ongoing hemorrhage. He should be evaluated by occupational therapy to mitigate fall risk. Okay to restart anticoagulation Romulo Rodriguez MD FACS
[2018-12-05] MEDS: Gabapentin 300 MG CAPSULE PO SCH ×3 (10:29→21:51)
[2018-12-05] MEDS: *HR* HYDROcodone/Acet 5/325 mg TABLET PO PRN ×2 (10:29→22:04)
[2018-12-05] MEDS: Spironolactone 25 MG TABLET PO SCH (10:29)
[2018-12-05] MEDS: Metoprolol XL (24 HR) Succ 50 MG TAB.ER.24H PO SCH (10:29)
[2018-12-05] MEDS: Lisinopril 20 MG TABLET PO SCH ×2 (10:29→21:51)
[2018-12-05] MEDS: Aspirin Enteric Coated 81 MG Tablet PO SCH (10:31)
[2018-12-05] MEDS: Tiotropium 18 MCG inhalation IH SCH (11:13)
[2018-12-05] MEDS ORDERED: Insulin LISPRO 300 UNITS/3 ML VIAL SQ SCH ×2 (11:30→21:00)
[2018-12-05] MEDS: Insulin LISPRO 300 UNITS/3 ML VIAL SQ SCH ×2 (17:00→22:00)
[2018-12-06 07:30] LABS: Hematocrit 29.8 % (37.5-50.1); Hemoglobin 9.9 g/dL (12.9-16.9); Mean Corpuscular HGB Conc 33.2 g/dL (31.6-35.5); Mean Corpuscular Hemoglobin 31.9 pg (28.0-33.3); Mean Corpuscular Volume 96.1 fL (83.0-100.0); Mean Platelet Volume 10.7 fL (9.4-12.4); Platelet Count 189 K/mcL (140-400); Red Cell Distribution Width 12.2 % (11.5-14.5)
[2018-12-06] MEDS: Tiotropium 18 MCG inhalation IH SCH (07:46)
[2018-12-06] MEDS: Metoprolol XL (24 HR) Succ 50 MG TAB.ER.24H PO SCH (08:26)
[2018-12-06] MEDS: Spironolactone 25 MG TABLET PO SCH (08:26)
[2018-12-06] MEDS: Aspirin Enteric Coated 81 MG Tablet PO SCH (08:26)
[2018-12-06] MEDS: Lisinopril 20 MG TABLET PO SCH ×2 (08:26→20:47)
[2018-12-06] MEDS: cefTRIAXone 1,000 MG in Water for inj. (sterile) 20 ML 10 ML IVP SCH (08:26)
[2018-12-06] MEDS: Gabapentin 300 MG CAPSULE PO SCH ×3 (08:26→20:47)
[2018-12-06] MEDS: Insulin LISPRO 300 UNITS/3 ML VIAL SQ SCH ×4 (08:27→20:54)
--- NOTE | 2018-12-06 08:59 | Internal Med Progress Note ---
Hospitalist Progress Note - Encounter Date of Encounter: 12/06/18 Time of Encounter: 08:59 - Subjective Interval History: No acute event overnight. His pain on right hip slight better but is still there. Review the lab slight trending down hemoglobin but no active bleeding of general. Review the vitals are stable. Talked to surgeon Patient had low-grade temperature last night but denies chills chest pain shortness of breath cough urinary or bowel complaint. He also denies abdominal pain nausea vomiting. - Exam Vitals: Temp Pulse Resp BP Pulse Ox 97.9 F 90 19 147/78 94 12/06/18 06:51 12/06/18 06:51 12/06/18 07:46 12/06/18 06:51 12/06/18 07:46 Exam: General appearance: No acute distress, Eye exam: EOMI, PERRLA ENT exam: Moist oral mucosa Neck nontender, supple Respiratory exam: Clear to auscultation bilaterally Cardiovascular exam: Regular rate and rhythm, no systolic murmur Abdominal exam: Soft, nontender, nondistended, positive bowel sounds Extremities exam: Right lower extremity-brace. RLE- weakness - chronic. Firm, tender skin area extending over right gluteal to groin and upper thigh- softer today Skin-no rash, warm, dry, intact Neurological exam: Alert, awake, oriented 3, CN II-XII intact, no focal deficits. No facial droop. Normal speech. - Assessment and Plan (1) Hematoma of right lower extremity Current Visit: Yes Status: Acute Assessment and Plan: CT scan of the right lower extremity revealed Large hyperdense collection overlying the right hip most consistent with hematoma and centered in the g luteus ubaldo muscle. This measures approximately 12 x 9 x 8 cm. General surgeon was consulted and no surgical intervention advice-is okay to restart Xarelto and signed out. xarelto restarted today. Patient has chronic right lower extremity weakness due to foot drop in severe neuropathy and has been on brace-high risk for fall. PT OT evaluated and recommended for inpatient rehabilitation-it will be possible tomorrow. Fall precaution especially on anticoagulation therapy. Will discharge patient tomorrow after reviewing repeat CBC and confirming the place for inpatient rehabilitation. (2) Fever Current Visit: Yes Status: Acute Assessment and Plan: Low-grade temperature but no associated systemic sign and symptom. Normal white count. continue to monitor. urine cx pending- continue abx (3) UTI (urinary tract infection) Current Visit: Yes Status: Acute Assessment and Plan: urinalysis is evidence for UTI, started the patient on ceftriaxone, follow-up cultures and sensitivity and adjust antibiotic regimen accordingly (4) Hypertension Current Visit: Yes Status: Acute Assessment and Plan: We will continue antihypertensive medication, and monitor blood pressure. controlled (5) Diabetes Current Visit: Yes Status: Acute Assessment and Plan: We will hold metformin and start the patient insulin sliding scale with moderate coverage (6) Atrial fibrillation Current Visit: Yes Status: Acute Assessment and Plan: Normal sinus rhythm. Restarted anticoagulation today (7) DVT prophylaxis Current Visit: Yes Status: Acute Assessment and Plan: xarelto started - Time Spent with Patient Total time spent is greater than 50% in coordination of care (as documented) at patient's floor/unit and/or counseling patient: 25 - 35 minutes Plan of Care Discussed with: patient Internal Medicine: Result - Labs CBC & Chem 7: 12/06/18 06:51 12/05/18 03:33 Labs: Short CBC 12/06/18 Range/Units 06:51 WBC 9.1 (4.3-11.1) K/mcL Hgb 9.9 L (12.9-16.9) g/dL Hct 29.8 L (37.5-50.1) % Plt Count 189 (140-400) K/mcL - ABG Interpretation ABG results: PT/INR, D-dimer PT 13.3 Seconds (9.4-12.1) H 12/05/18 03:33 - Impressions Impressions Hip CT 12/04/18 09:35 IMPRESSION: Large hyperdense collection overlying the right hip most consistent with hematoma and centered in the gluteus ubaldo muscle. This measures approximately 12 x 9 x 8 cm. Clinical follow up to resolution is suggested. No acute osseous abnormality. D/ / 12/04/2018 10:45:50 Héctor Garcia MD / alexia Interpreting Provider: Héctor Garcia MD - VTE Documentation of Mechanical Device: Intermittent pneumatic compression device Consult Discharge Plan - Plan Referrals: [facility] [Primary Care Provider] - (1) Hematoma of right lower extremity Qualifiers: Encounter type: initial encounter Qualified Code(s): S80.11XA - Contusion of right lower leg, initial encounter (3) UTI (urinary tract infection) Qualifiers: Urinary tract infection type: site unspecified Hematuria presence: without hematuria Qualified Code(s): N39.0 - Urinary tract infection, site not specified (4) Hypertension Qualifiers: Hypertension type: essential hypertension Qualified Code(s): I10 - Essential (primary) hypertension (5) Diabetes Qualifiers: Diabetes mellitus type: type 2 Diabetes mellitus [facility] insulin use: without [facility] use Diabetes mellitus complication status: with unspecified complications Qualified Code(s): E11.8 - Type 2 diabetes mellitus with unspecified complications (6) Atrial fibrillation Qualifiers: Atrial fibrillation type: chronic Qualified Code(s): I48.2 - Chronic atrial fibrillation
--- NOTE | 2018-12-06 10:32 | AcuteCareSurgery Progress Note ---
<Javier Murphy - Last Filed: 12/06/18 10:30> Date of Encounter: 12/06/18 Time of Encounter: 07:30 - Assessment and Plan (1) Hematoma of right lower extremity Current Visit: Yes Status: Acute No evidence of current continued hemorrhage or bleeding. Okay from surgical standpoint to restart anticoagulation. Acute care surgery will sign off. Qualifiers: Encounter type: initial encounter Qualified Code(s): S80.11XA - Contusion of right lower leg, initial encounter Subjective Narrative: Patient seen and examined at bedside this morning. No acute events overnight. Patient states he feels well. Hemoglobin stable since yesterday. Objective Vital Signs - Last 8 Hours Temp Pulse Resp BP Pulse Ox 12/06/18 07:46 19 94 12/06/18 06:51 97.9 F 90 15 147/78 95 12/06/18 04:54 148/90 12/06/18 04:14 99.0 F 109 14 174/90 94 Intake and Output 12/05/18 12/06/18 12/06/18 23:59 07:59 15:59 Intake Total 360 / 1530 0 / 480 480 / 480 Output Total 175 / 1000 510 / 610 100 / 610 Balance 185 / 530 -510 / -130 380 / -130 Intake: Oral 360 / 1520 0 / 480 480 / 480 Output: Urine 175 / 1000 510 / 610 100 / 610 Other: Meal Dinner Breakfast Percent of Meal Consumed 100% 100% # Bowel Movements 0 Weight 112.1 kg Blood Glucose* 157 151 Patient Weight 12/06/18 23:59 Weight 112.1 kg - General physical appearance well developed, well nourished - Eyes PERRL, normal ocular movement - ENT normal pinna, normal nares - Neck Neck exam: trachea midline, no venous distension - Respiratory normal expansion, normal respiratory effort - Cardiovascular Cardiovascular exam: Present: RRR - Abdomen Abdomen: Present: bowel sounds present, soft, non tender - Labs 12/06/18 06:51 12/05/18 03:33 - VTE Documentation of Mechanical Device: Intermittent pneumatic compression device Consult Discharge Plan - Plan Referrals: [facility] [Primary Care Provider] - <Romulo Rodriguez - Last Filed: 12/06/18 12:39> Date of Encounter: 12/06/18 Objective Vital Signs - Last 8 Hours Temp Pulse Resp BP Pulse Ox 12/06/18 10:33 98.9 F 79 15 123/81 94 12/06/18 07:46 19 94 12/06/18 06:51 97.9 F 90 15 147/78 95 12/06/18 04:54 148/90 Intake and Output 12/05/18 12/06/18 12/06/18 23:59 07:59 15:59 Intake Total 360 / 1530 0 / 480 480 / 480 Output Total 175 / 1000 510 / 610 100 / 610 Balance 185 / 530 -510 / -130 380 / -130 Intake: Oral 360 / 1520 0 / 480 480 / 480 Output: Urine 175 / 1000 510 / 610 100 / 610 Other: Meal Dinner Breakfast Percent of Meal Consumed 100% 100% # Bowel Movements 0 Weight 112.1 kg Blood Glucose* 157 151 Patient Weight 12/06/18 23:59 Weight 112.1 kg - Labs 12/06/18 06:51 12/05/18 03:33 - Attending Attestation I examined this patient and my medical decision-making was reviewed with the Resident Physician. I agree with the documented findings, disposition and treatment plan as described except to the extent set forth below. The patient is seen and evaluated on morning rounds with resident. The patient feels a bit stronger today and feels like he can stand. Certainly the hematoma related to a traumatic event and no further bleeding is noted clinically. The intramuscular hematoma does not need to be drained. I would favor restarting his antiplatelet therapy and discharging from the hospital. Romulo Rodriguez MD FACS
[2018-12-06] MEDS: *HR* HYDROcodone/Acet 5/325 mg TABLET PO PRN (16:21)
[2018-12-06] MEDS ORDERED: *HR* Rivaroxaban 10 MG TABLET PO SCH (17:00)
[2018-12-07 06:45] LABS: Hematocrit 31.8 % (37.5-50.1); Hemoglobin 10.5 g/dL (12.9-16.9); Mean Corpuscular Hemoglobin 31.9 pg (28.0-33.3); Mean Corpuscular Volume 96.7 fL (83.0-100.0); Mean Platelet Volume 10.4 fL (9.4-12.4); Platelet Count 237 K/mcL (140-400); Red Blood Count 3.29 M/mcL (4.19-5.50); Red Cell Distribution Width 12.1 % (11.5-14.5)
[2018-12-07 07:11] VITALS: BP 155/80
[2018-12-07] MEDS: Aspirin Enteric Coated 81 MG Tablet PO SCH (07:14)
[2018-12-07] MEDS: cefTRIAXone 1,000 MG in Water for inj. (sterile) 20 ML 10 ML IVP SCH (07:14)
[2018-12-07] MEDS: Spironolactone 25 MG TABLET PO SCH (07:14)
[2018-12-07] MEDS: Gabapentin 300 MG CAPSULE PO SCH (07:14)
[2018-12-07] MEDS: Metoprolol XL (24 HR) Succ 50 MG TAB.ER.24H PO SCH (07:15)
[2018-12-07] MEDS: Lisinopril 20 MG TABLET PO SCH (07:16)
[2018-12-07] MEDS: *HR* HYDROcodone/Acet 5/325 mg TABLET PO PRN (07:19)
[2018-12-07] MEDS: Insulin LISPRO 300 UNITS/3 ML VIAL SQ SCH (07:50)
[2018-12-07] MEDS: Tiotropium 18 MCG inhalation IH SCH (08:04)
--- NOTE | 2018-12-07 09:40 | Discharge Summary ---
- NOTES TO OUTPATIENT PROVIDER Notes to Outpatient Provider: Follow with PCP in one week. Fall precaution Orders not resulted at time of discharge: Pending orders 12/04/18 11:27 Culture,Blood [BC] Stat Date of Encounter: 12/07/18 Time of Encounter: 09:37 - Discharge Diagnosis (1) Hematoma of right lower extremity Priority: Primary Status: Acute Assessment and Plan: CT scan of the right lower extremity revealed Large hyperdense collection overlying the right hip most consistent with hematoma and centered in the gluteus ubaldo muscle. This measures approximately 12 x 9 x 8 cm. Consulted general surgeon -no acute surgical intervention advice and okay to discharge from surgery standpoint. xarelto reintroduced and followed hemoglobin 24 hour later with slight improvement in hemoglobin. No active bleeding noticed. Patient has chronic right lower leg weakness due to severe peripheral neuropathy and has been on brace therefore fall precaution advice especially being on anticoagulation. PT OT consulted and advise for inpatient rehabilitation. Patient is being transferred to [facility] today (2) UTI (urinary tract infection) Priority: Primary Status: Acute Assessment and Plan: Urine analysis abnormal but no growth in urine culture. Rocephin 3 doses were given. No antibiotic on discharge. Patient denies urinary complaint Qualifiers: Urinary tract infection type: site unspecified Hematuria presence: without hematuria Qualified Code(s): N39.0 - Urinary tract infection, site not specified (3) Hypertension Priority: Primary Status: Acute Assessment and Plan: Continue home medicine Qualifiers: Hypertension type: essential hypertension Qualified Code(s): I10 - Essential (primary) hypertension (4) Diabetes Priority: Primary Status: Acute Assessment and Plan: Continue home medicine Qualifiers: Diabetes mellitus type: type 2 Diabetes mellitus intermediate frame tender insulin use: without senior care use Diabetes mellitus complication status: with unspecified complications Qualified Code(s): E11.8 - Type 2 diabetes mellitus with unspecified complications (5) Atrial fibrillation Priority: Primary Status: Acute Assessment and Plan: Continue home medicine Qualifiers: Atrial fibrillation type: chronic Qualified Code(s): I48.2 - Chronic atrial fibrillation Hospital course: Mr. Loza is a 73 year old male patient with history of A. fib on anticoagulation got admitted for right gluteus ubaldo large hematoma. General surgeon was consulted with no acute surgical intervention. Patient has been stable with improvement in hematoma and no further active bleeding or drop in hemoglobin after reintroducing Xarelto. PTOT advise for inpatient rehabilitation. Please see detail in diagnosis section of discharge summary. At the time of discharge patient clinically stable tolerating oral diet and back to baseline and ambulation. Fall risk precaution advice. Discharge discussed with: patient, nurse, outbound sales consultant - Time Spent with Patient Total time spent providing and/or coordinating discharge services: - Discharge Medications Prescriptions: No Action Simvastatin [Zocor] 20 mg PO HS Potassium Chloride [Kdur] 10 meq PO Q48H Lisinopril [Zestril] 20 mg PO BID Gabapentin [Neurontin] 300 mg PO TID Aspirin [Lo-Dose Aspirin EC] 81 mg PO DAILY Albuterol Sulfate [Albuterol Inhaler] 2 puff PO QID PRN PRN Reason: Shortness Of Breath Alprostadil [[place]] 500 mcg UR AD PRN PRN Reason: Erectile Dysfunction Metformin HCl [Fortamet] 500 mg PO BID Metoprolol Succinate [Toprol Xl] 25 mg PO DAILY Potassium Chloride 20 meq PO Q48H Rivaroxaban [Xarelto] 20 mg PO DAILY Sertraline [Zoloft] 75 mg PO DAILY Spironolactone [Aldactone] 25 mg PO DAILY Tiotropium [Spiriva] 1 puff PO DAILY Home Medications: Aspirin [Lo-Dose Aspirin EC] 81 mg PO DAILY 06/22/17 [History] Lisinopril [Zestril] 20 mg PO BID 06/22/17 [History] Potassium Chloride [Kdur] 10 meq PO Q48H 06/22/17 [History] Simvastatin [Zocor] 20 mg PO HS 06/22/17 [History] Albuterol Sulfate [Albuterol Inhaler] 2 puff PO QID PRN 12/04/18 [History] Alprostadil [[place]] 500 mcg UR AD PRN 12/04/18 [History] Metformin HCl [Fortamet] 500 mg PO BID 12/04/18 [History] Metoprolol Succinate [Toprol Xl] 25 mg PO DAILY 12/04/18 [History] Potassium Chloride 20 meq PO Q48H 12/04/18 [History] Rivaroxaban [Xarelto] 20 mg PO DAILY 12/04/18 [History] Sertraline [Zoloft] 75 mg PO DAILY 12/04/18 [History] Spironolactone [Aldactone] 25 mg PO DAILY 12/04/18 [History] Tiotropium [Spiriva] 1 puff PO DAILY 12/04/18 [History] Gabapentin [Neurontin] 300 mg PO TID #30 capsule 12/07/18 [Rx] HYDROcodone/Acet 5/325 mg [[place] 5-325 mg] 1 tab PO Q12H PRN 3 Days #6 tablet 12/07/18 [Rx] Allergies/Adverse Reactions: Allergy/AdvReac Type Severity Reaction Status Date / Time No Known Allergies Allergy Verified 12/04/18 09:45 Date of admission: 12/04/18 17:39 [facility] physician: [facility] Consults: 12/04/18 12:15 Consult to Hot Blaster [CONS] Routine Reason for Consult: placement 12/04/18 12:16 Consult to Physical Therapy [CONS] Routine Comment: Evaluate, develop and implement POC Reason for Consult: Difficulties ambulation Does patient have active BEDREST order?: Yes Is patient medically & hemodynamically stable?: Yes Patient assessed for mobility or mobilized this visit?: No 12/04/18 12:17 Consult to Occupational Therapy [CONS] Routine Comment: Evaluate, develop and implement POC Reason for Consult: Difficulty with ambulation Does patient have active BEDREST order?: Yes Is patient medically & hemodynamically stable?: Yes Patient assessed for mobility or mobilized this visit?: No 12/05/18 08:45 Consult to Surgery [CONS] Routine Consulting Provider: Acute Care Surgery Reason for Consult: Large hematoma over the gluteus ubaldo, opinion on xarelto to restart Call Completed: Yes - Constitutional Vitals: Temp Pulse Resp BP Pulse Ox 98.8 F 98 16 155/80 95 12/07/18 07:10 12/07/18 07:10 12/07/18 08:04 12/07/18 07:10 12/07/18 08:04 Exam: General appearance: No acute distress, Eye exam: EOMI, PERRLA ENT exam: Moist oral mucosa Neck nontender, supple Respiratory exam: Clear to auscultation bilaterally Cardiovascular exam: Regular rate and rhythm, no systolic murmur Abdominal exam: Soft, nontender, nondistended, positive bowel sounds Extremities exam: Right lower extremity-brace. RLE- weakness - chronic. Firm, tender skin area extending over right gluteal to groin and upper thigh- getting and decrease in size Skin-no rash, warm, dry, intact Neurological exam: Alert, awake, oriented 3, CN II-XII intact, no focal deficits. No facial droop. Normal speech. - Patient Status Disposition: Transfer Inpatient Rehab Fac Condition: Fair Overall status at discharge: patient is progressing back to baseline - Discharge Instructions [facility] With: [facility] [Primary Care Provider[facility] - - Diet and Activity Activity: as per physical therapy Diet: diabetic diet, low fat, low cholesterol, low salt diet - VTE Documentation of Mechanical Device: Intermittent pneumatic compression device
--- NOTE | 2018-12-07 09:52 | Physician Discharge Referral ---
ExtendedCare Referral Info Transfer To: inpt rehab Provider in Charge after Transfer: PCP Institutional Level of Care: Skilled - Diagnosis (1) Hematoma of right lower extremity Priority: Primary Status: Acute (2) UTI (urinary tract infection) Priority: Primary Status: Acute (3) Hypertension Priority: Primary Status: Acute (4) Diabetes Priority: Primary Status: Acute (5) Atrial fibrillation Priority: Primary Status: Acute - Transfer Medications Prescriptions: Gabapentin [Neurontin] 300 mg PO TID #30 capsule HYDROcodone/Acet 5/325 mg [[place] 5-325 mg] 1 tab PO Q12H PRN 3 Days #6 tablet PRN Reason: Moderate Pain Home Medications: Aspirin [Lo-Dose Aspirin EC] 81 mg PO DAILY 06/22/17 [History] Lisinopril [Zestril] 20 mg PO BID 06/22/17 [History] Potassium Chloride 10 meq PO Q48H 06/22/17 [History] Simvastatin [Zocor] 20 mg PO HS 06/22/17 [History] Albuterol Sulfate [Albuterol Inhaler] 2 puff PO QID PRN 12/04/18 [History] Alprostadil [[place]] 500 mcg UR AD PRN 12/04/18 [History] Metformin HCl [Fortamet] 500 mg PO BID 12/04/18 [History] Metoprolol Succinate [Toprol Xl] 25 mg PO DAILY 12/04/18 [History] Potassium Chloride 20 meq PO Q48H 12/04/18 [History] Rivaroxaban [Xarelto] 20 mg PO DAILY 12/04/18 [History] Sertraline [Zoloft] 75 mg PO DAILY 12/04/18 [History] Spironolactone [Aldactone] 25 mg PO DAILY 12/04/18 [History] Tiotropium [Spiriva] 1 puff PO DAILY 12/04/18 [History] Gabapentin [Neurontin] 300 mg PO TID #30 capsule 12/07/18 [Rx] HYDROcodone/Acet 5/325 mg [[place] 5-325 mg] 1 tab PO Q12H PRN 3 Days #6 tablet 12/07/18 [Rx] Allergies/Adverse Reactions: Allergy/AdvReac Type Severity Reaction Status Date / Time No Known Allergies Allergy Verified 12/04/18 09:45 - Respiratory Orders Smoking Cessation: Smoking cessation has been advised. For more information, call the [place] Tobacco Quit Line at 8-263-XROH-NOW. - Rehabiliation Orders Rehab Orders: Evaluation for Physical Therapy, Evaluation for Occupational Therapy CERTIFICATION: I certify that the transfer of the above named patient to an Extended Care Facility is necessary for the continuing treatment of the diagnosis listed. The above information is true and accurate reflection of patient's current condition. Confidential - Redisclosure prohibited without a patient's written consent.
== END 2018-12-07 10:55 | DRG 605 ==
LOC: 3ANU 09:21 → EMEROOARM 09:21 → 3ANU 12:03
PROVIDERS: ADMIT Internal Medicine Nephrology; ATTEND Internal Medicine Nephrology

== ENCOUNTER 2019-08-28 04:50 | Inpatient (IN) ==
[2019-08-28] MEDS ORDERED: cefTRIAXone 1,000 MG in Water for inj. (sterile) 10 ML IVP ONE (05:06)
[2019-08-28] MEDS ORDERED: 0.9 % Sodium Chloride 1,000 ML IVC ONE ×2 (05:10→06:16)
[2019-08-28] MEDS ORDERED: Ondansetron 4 MG/2 ML VIAL IVP ONE (05:11)
[2019-08-28 05:15] LABS: Bilirubin,Urine Negative (Negative); Blood,Urine Large (Negative); Clarity,Urine Cloudy (Clear); Color,Urine Yellow (Yellow); Glucose,Urine (UA) 250 mg/dL (Normal); Ketones,Urine Trace mg/dL (Negative); Leukocyte Esterase,Urine Large (Negative); Nitrite,Urine Positive (Negative); Protein,Urine 100 mg/dL (Neg-Trace); Specific Gravity,Urine 1.016 (1.010-1.025); Urobilinogen,Urine Normal (Normal)
[2019-08-28 05:16] LABS: Basophils % 0.2 %; Eosinophils % 0.1 %; Hematocrit 44.8 % (37.5-50.1); Hemoglobin 16.1 g/dL (12.9-16.9); Immature Granulocytes % 0.4 % (0-4); Lymphocytes # 0.2 K/mcL (0.6-4.6); Lymphocytes % 1.8 %; Mean Corpuscular HGB Conc 35.9 g/dL (31.6-35.5); Mean Corpuscular Hemoglobin 32.1 pg (28.0-33.3); Mean Corpuscular Volume 89.2 fL (83.0-100.0); Mean Platelet Volume 10.8 fL (9.4-12.4); Monocytes # 0.1 K/mcL (0.0-1.3); Monocytes % 0.6 %; Neutrophils # 11.5 K/mcL (1.6-8.9); Platelet Count 176 K/mcL (140-400); Red Blood Count 5.02 M/mcL (4.19-5.50); Red Cell Distribution Width 12.4 % (11.5-14.5); Segmented Neutrophils % 96.9 %; White Blood Count 11.9 K/mcL (4.3-11.1)
[2019-08-28 05:16] LABS: Bacteria,Urine Many per hpf (None-Few); Hyaline Casts,Urine None Seen per lpf (None-Few); RBC,Urine TNTC per hpf (0-3); Squamous Epithelial Cell,Urine Few per lpf (None-Few); WBC,Urine TNTC per hpf (0-3)
[2019-08-28 05:21] LABS: INR 2.1; Prothrombin Time 23.7 Seconds (9.4-12.1)
[2019-08-28 05:39] LABS: BUN/Creatinine Ratio 13 (6-26); Blood Urea Nitrogen 15 mg/dL (8-23); Calcium 9.3 mg/dL (8.6-10.3); Carbon Dioxide 23 mEq/L (23-29); Chloride 103 mEq/L (98-107); Glucose 244 mg/dL (70-105); Osmolality,Calculated 297 (280-300); Potassium 3.5 mEq/L (3.5-5.1); Sodium 139 mEq/L (136-145); Troponin I < 0.03 ng/mL (< 0.04); eGFR For African Americans > 60 (> 60); eGFR For Non-African Americans > 60 (> 60)
[2019-08-28] MEDS ORDERED: Acetaminophen 325 MG TABLET PO PRN (07:44)
[2019-08-28] MEDS ORDERED: Ondansetron 4 MG/2 ML VIAL IVP PRN (07:44)
[2019-08-28] MEDS ORDERED: Naloxone 0.4 MG/ML INJ IVP PRN (07:44)
[2019-08-28] MEDS ORDERED: *HR* Dextrose 50 % in Water (Syg) 50 ML SYRINGE IVP PRN (08:41)
[2019-08-28] MEDS ORDERED: D5% in Water 1,000 ML IVC PRN (08:41)
[2019-08-28] MEDS ORDERED: Dextrose Gel 15 GM/37.5 ML TUBE PO PRN ×2 (08:41)
[2019-08-28] MEDS ORDERED: cefTRIAXone 1,000 MG in 0.9 % Sodium Chloride Mini Bag 100 ML IVPB ONE (08:44)
[2019-08-28] MEDS: 0.9 % Sodium Chloride 1,000 ML IVC SCH ×2 (10:45→20:42)
[2019-08-28] MEDS: Insulin DETEMIR 100 UNIT/ML X5UNITS SQ SCH (10:47)
[2019-08-28] MEDS: Insulin LISPRO 300 UNITS/3 ML VIAL SQ SCH ×2 (13:37→17:01)
[2019-08-28 17:32] LABS: Acinetobacter baumannii by PCR Not Detected (Not Detect); Candida albicans by PCR Not Detected (Not Detect); Candida glabrata by PCR Not Detected (Not Detect); Candida krusei by PCR Not Detected (Not Detect); Candida parapsilosis by PCR Not Detected (Not Detect); Candida tropicalis by PCR Not Detected (Not Detect); Enterobacter cloacae Cmplx PCR Not Detected (Not Detect); Enterobacteriaceae by PCR DETECTED (Not Detect); Enterococcus by PCR Not Detected (Not Detect); Klebsiella oxytoca by PCR Not Detected (Not Detect); Klebsiella pneumoniae by PCR Not Detected (Not Detect); Proteus by PCR Not Detected (Not Detect); Pseudomonas aeruginosa by PCR Not Detected (Not Detect); Serratia marcescens by PCR Not Detected (Not Detect); Staphylococcus aureus by PCR Not Detected (Not Detect); Staphylococcus by PCR Not Detected (Not Detect); Streptococcus agalactiae(B)PCR Not Detected (Not Detect); Streptococcus by PCR Not Detected (Not Detect); Streptococcus pneumoniae PCR Not Detected (Not Detect); Streptococcus pyogenes (A) PCR Not Detected (Not Detect); blaKPC Carbapenem-Resist Gene Not Detected (Not Detect)
[2019-08-28 17:33] LABS: Escherichia coli by PCR DETECTED (Not Detect)
[2019-08-28] MEDS ORDERED: Ipratropium/Albuterol Neb 3 ML IH PRN (19:27)
[2019-08-28] MEDS: Gabapentin 400 MG CAPSULE PO SCH (20:53)
[2019-08-28] MEDS: *HR* Rivaroxaban 10 MG TABLET PO SCH (20:54)
[2019-08-29] MEDS: cefTRIAXone 2,000 MG in Water for inj. (sterile) 20 ML IVPB SCH (05:47)
[2019-08-29] MEDS: 0.9 % Sodium Chloride 1,000 ML IVC SCH ×2 (05:48→16:36)
[2019-08-29 06:43] LABS: Basophils % 0.2 %; Eosinophils # 0.1 K/mcL (0.0-0.6); Eosinophils % 1.5 %; Hematocrit 39.7 % (37.5-50.1); Immature Granulocytes % 0.4 % (0-4); Lymphocytes # 0.6 K/mcL (0.6-4.6); Lymphocytes % 6.5 %; Mean Corpuscular HGB Conc 34.3 g/dL (31.6-35.5); Mean Corpuscular Hemoglobin 31.5 pg (28.0-33.3); Mean Corpuscular Volume 91.9 fL (83.0-100.0); Mean Platelet Volume 11.3 fL (9.4-12.4); Monocytes # 0.7 K/mcL (0.0-1.3); Monocytes % 7.9 %; Neutrophils # 7.6 K/mcL (1.6-8.9); Platelet Count 137 K/mcL (140-400); Red Blood Count 4.32 M/mcL (4.19-5.50); Red Cell Distribution Width 12.8 % (11.5-14.5); Segmented Neutrophils % 83.5 %; White Blood Count 9.1 K/mcL (4.3-11.1)
[2019-08-29 06:44] LABS: Hemoglobin 13.6 g/dL (12.9-16.9)
[2019-08-29 06:53] LABS: BUN/Creatinine Ratio 16 (6-26); Blood Urea Nitrogen 20 mg/dL (8-23); Calcium 8.3 mg/dL (8.6-10.3); Carbon Dioxide 27 mEq/L (23-29); Chloride 102 mEq/L (98-107); Glucose 139 mg/dL (70-105); Osmolality,Calculated 293 (280-300); Potassium 3.8 mEq/L (3.5-5.1); Sodium 139 mEq/L (136-145); eGFR For African Americans > 60 (> 60); eGFR For Non-African Americans 55 (> 60)
[2019-08-29 08:08] LABS: Estimated Average Glucose 157 mg/dl
[2019-08-29] MEDS: Insulin LISPRO 300 UNITS/3 ML VIAL SQ SCH ×3 (08:56→17:43)
[2019-08-29] MEDS: Gabapentin 400 MG CAPSULE PO SCH ×2 (08:56→21:21)
[2019-08-29] MEDS: Insulin DETEMIR 100 UNIT/ML X5UNITS SQ SCH (08:57)
[2019-08-29] MEDS: Metoprolol XL (24 HR) Succ 50 MG TAB.ER.24H PO SCH (08:57)
[2019-08-29] MEDS: Spironolactone 25 MG TABLET PO SCH (08:57)
[2019-08-29] MEDS: Aspirin Enteric Coated 81 MG Tablet PO SCH (08:57)
[2019-08-29] MEDS: *HR* Rivaroxaban 10 MG TABLET PO SCH (21:21)
[2019-08-29] MEDS ORDERED: hydrALAZINE 10 MG TABLET PO PRN (22:50)
[2019-08-30 04:28] LABS: Hematocrit 43.9 % (37.5-50.1); Hemoglobin 14.7 g/dL (12.9-16.9); Mean Corpuscular HGB Conc 33.5 g/dL (31.6-35.5); Mean Corpuscular Hemoglobin 31.2 pg (28.0-33.3); Mean Corpuscular Volume 93.2 fL (83.0-100.0); Mean Platelet Volume 11.1 fL (9.4-12.4); Platelet Count 153 K/mcL (140-400); Red Blood Count 4.71 M/mcL (4.19-5.50); Red Cell Distribution Width 12.5 % (11.5-14.5); White Blood Count 9.5 K/mcL (4.3-11.1)
[2019-08-30 04:51] LABS: BUN/Creatinine Ratio 17 (6-26); Blood Urea Nitrogen 17 mg/dL (8-23); Calcium 8.7 mg/dL (8.6-10.3); Carbon Dioxide 25 mEq/L (23-29); Chloride 104 mEq/L (98-107); Glucose 171 mg/dL (70-105); Magnesium 1.9 mg/dL (1.6-2.6); Osmolality,Calculated 290 (280-300); Potassium 3.8 mEq/L (3.5-5.1); Sodium 137 mEq/L (136-145); eGFR For African Americans > 60 (> 60); eGFR For Non-African Americans > 60 (> 60)
[2019-08-30] MEDS: cefTRIAXone 2,000 MG in Water for inj. (sterile) 20 ML IVPB SCH (05:30)
[2019-08-30] MEDS: Gabapentin 400 MG CAPSULE PO SCH ×2 (08:10→20:18)
[2019-08-30] MEDS: Insulin LISPRO 300 UNITS/3 ML VIAL SQ SCH ×3 (08:10→16:41)
[2019-08-30] MEDS: Aspirin Enteric Coated 81 MG Tablet PO SCH (08:10)
[2019-08-30] MEDS: Spironolactone 25 MG TABLET PO SCH (08:10)
[2019-08-30] MEDS: Metoprolol XL (24 HR) Succ 50 MG TAB.ER.24H PO SCH (08:11)
[2019-08-30] MEDS: Insulin DETEMIR 100 UNIT/ML X5UNITS SQ SCH (08:22)
[2019-08-30] MEDS ORDERED: Vancomycin 1,750 MG in 0.9 % Sodium Chloride 250 ML IVPB SCH (11:00)
[2019-08-30] MEDS ORDERED: Aminoglycoside Consult 1 EACH MC ONE (16:21)
[2019-08-30] MEDS: *HR* Rivaroxaban 10 MG TABLET PO SCH (20:18)
[2019-08-31] MEDS: cefTRIAXone 2,000 MG in Water for inj. (sterile) 20 ML IVPB SCH (05:27)
[2019-08-31] MEDS: Spironolactone 25 MG TABLET PO SCH (09:10)
[2019-08-31] MEDS: Aspirin Enteric Coated 81 MG Tablet PO SCH (09:10)
[2019-08-31] MEDS: Insulin LISPRO 300 UNITS/3 ML VIAL SQ SCH ×3 (09:10→15:53)
[2019-08-31] MEDS: Gabapentin 400 MG CAPSULE PO SCH (09:10)
[2019-08-31] MEDS: Metoprolol XL (24 HR) Succ 50 MG TAB.ER.24H PO SCH (09:10)
[2019-08-31] MEDS: Insulin DETEMIR 100 UNIT/ML X5UNITS SQ SCH (09:10)
[2019-08-31 11:03] VITALS: BP 131/75
[2019-08-31] MEDS: Nitrofurantoin (BID) 100 MG CAPSULE PO SCH ×2 (11:06→15:45)
== END 2019-08-31 16:22 | disposition home or self-care (01) | DRG 871 ==
LOC: 2ANU 04:50 → EMEROOARM 04:50 → SUATTDRO 07:48 → 2ANU 08:55
PROVIDERS: ADMIT Pharmacist; ATTEND Internal Medicine

== ENCOUNTER 2022-03-28 19:48 | Inpatient (IN) ==
[2022-03-28] MEDS ORDERED: 0.9 % Sodium Chloride 1,000 ML IVC ONE (20:09)
[2022-03-28 20:34] LABS: Basophils % 0.2 %; Eosinophils % 0.2 %; Hematocrit 41.8 % (37.5-50.1); Hemoglobin 14.2 g/dL (12.9-16.9); Immature Granulocytes % 1.5 % (0-4); Lymphocytes # 0.2 K/mcL (0.6-4.6); Lymphocytes % 2.4 %; Mean Corpuscular Hemoglobin 30.5 pg (28.0-33.3); Mean Corpuscular Volume 89.7 fL (83.0-100.0); Mean Platelet Volume 11.5 fL (9.4-12.4); Monocytes # 0.1 K/mcL (0.0-1.3); Monocytes % 0.7 %; Neutrophils # 8.3 K/mcL (1.6-8.9); Nucleated Red Blood Cells 0.3 /100 WBC (0); Platelet Count 163 K/mcL (140-400); Red Blood Count 4.66 M/mcL (4.19-5.50); Red Cell Distribution Width 13.3 % (11.5-14.5); White Blood Count 8.7 K/mcL (4.3-11.1)
[2022-03-28 20:43] LABS: INR 1.7; Prothrombin Time 18.8 Seconds (9.4-12.1)
[2022-03-28 20:44] LABS: VBG HCO3 25 mEq/L (21-27); VBG PCO2 44 mmHg (41-51); VBG PH 7.36 pH Units (7.32-7.42); VBG PO2 174 mmHg (25-50)
[2022-03-28 20:46] LABS: Activated Partial Thrombo Time 33.2 Seconds (26.0-36.0)
[2022-03-28 20:59] LABS: Platelet Estimate Normal (Normal)
[2022-03-28] MEDS ORDERED: Acetaminophen 650 MG RECTAL SUPP RC ONE (21:05)
[2022-03-28] MEDS ORDERED: cefTRIAXone 2,000 MG in 0.9 % Sodium Chloride Mini Bag 100 ML IVPB ONE (21:05)
[2022-03-28 21:09] LABS: Alanine Aminotransferase 112 Units/L (7-52); Albumin 3.6 g/dL (3.5-5.7); Albumin/Globulin Ratio 1.2 (1.1-2.2); Alkaline Phosphatase 101 Units/L (34-104); Aspartate Amino Transferase 224 Units/L (13-39); BUN/Creatinine Ratio 13 (6-26); Bilirubin,Direct 0.6 mg/dL (0.0-0.2); Bilirubin,Indirect 0.6 mg/dL (0.0-1.0); Bilirubin,Total 1.2 mg/dL (0.3-1.0); Blood Urea Nitrogen 24 mg/dL (8-23); Calcium 8.9 mg/dL (8.6-10.3); Carbon Dioxide 23 mEq/L (23-29); Chloride 98 mEq/L (98-107); Creatine Kinase 206 Units/L (30-223); Ethanol < 10 mg/dL (Less than 10); Globulin 2.9 g/dL (2.4-3.5); Glucose 246 mg/dL (70-105); Osmolality,Calculated 294 (280-300); Sodium 136 mEq/L (136-145); Thyroid Stimulating Hormone 3.971 mcIU/mL (0.340-5.600); Total Protein 6.5 g/dL (6.4-8.9); Troponin I 0.04 ng/mL (< 0.04)
[2022-03-28 21:12] LABS: Bacteria,Urine Moderate per hpf (None-Few); Bilirubin,Urine Negative (Negative); Blood,Urine Small (Negative); Clarity,Urine Ex.Turbid (Clear); Color,Urine Yellow (Yellow); Glucose,Urine (UA) 500 mg/dL (Normal); Ketones,Urine Negative (Negative); Leukocyte Esterase,Urine Large (Negative); Mucus,Urine Few per lpf (None-Few); Nitrite,Urine Negative (Negative); Protein,Urine Trace mg/dL (Neg-Trace); Squamous Epithelial Cell,Urine Few per hpf (None-Few); Urobilinogen,Urine Normal (Normal); WBC,Urine TNTC per hpf (0-3)
[2022-03-28 21:19] LABS: Amphetamine Screen,Urine Negative ng/mL (Cutoff=1000); Barbiturate Screen,Urine Negative ng/mL (Cutoff=200); Benzodiazepines Screen,Urine Negative ng/mL (Cutoff=200); Cannabinoid Screen,Urine Negative ng/mL (Cutoff = 50); Cocaine Screen,Urine Negative ng/mL (Cutoff= 300); Opiate Screen,Urine Negative ng/mL (Cutoff=300); Phencyclidine Screen,Urine Negative ng/mL (Cutoff=25)
[2022-03-28 22:48] LABS: Influenza A PCR Negative (Negative); Influenza B PCR Negative (Negative); Resp. Syncytial Virus PCR Negative (Negative)
[2022-03-28 22:58] LABS: SARS-CoV-2 by PCR (In House) Negative (Negative)
[2022-03-29] MEDS ORDERED: 0.9 % Sodium Chloride 1,000 ML IV ONE ×2 (00:49→02:53)
[2022-03-29] MEDS ORDERED: Naloxone 0.4 MG/ML INJ IVP PRN (03:02)
[2022-03-29] MEDS ORDERED: Acetaminophen 325 MG TABLET PO PRN (03:02)
[2022-03-29] MEDS ORDERED: Acetaminophen 650 MG RECTAL SUPP RC PRN (03:05)
[2022-03-29] MEDS ORDERED: 0.9 % Sodium Chloride 1,000 ML IVC SCH (03:15)
[2022-03-29] MEDS ORDERED: D5% in Water 1,000 ML IVC PRN (03:30)
[2022-03-29] MEDS ORDERED: Dextrose Gel 15 GM/37.5 ML TUBE PO PRN ×2 (03:30)
[2022-03-29] MEDS ORDERED: *HR* Dextrose 50 % in Water (Syg) 50 ML SYRINGE IVP PRN (03:30)
[2022-03-29] MEDS ORDERED: Albumin 25% 25gram/100mL 25 GM/100 ML IV.SOLN IVPB ONE (05:49)
[2022-03-29] MEDS ORDERED: Ipratropium/Albuterol Neb 3 ML IH PRN (06:45)
[2022-03-29] MEDS ORDERED: Scopolamine Patch 1.5 MG PATCH.TD72 TD SCH (06:45)
[2022-03-29 08:10] LABS: Hematocrit 36.6 % (37.5-50.1); Hemoglobin 12.2 g/dL (12.9-16.9); Immature Platelets 12.6 % (1.1-6.1); Mean Corpuscular HGB Conc 33.3 g/dL (31.6-35.5); Mean Corpuscular Hemoglobin 30.6 pg (28.0-33.3); Mean Corpuscular Volume 91.7 fL (83.0-100.0); Red Blood Count 3.99 M/mcL (4.19-5.50); Red Cell Distribution Width 13.6 % (11.5-14.5); White Blood Count 22.6 K/mcL (4.3-11.1)
[2022-03-29 08:18] LABS: Acetaminophen < 10 mcg/mL (10-20); Salicylate < 2.5 mg/dL (15.0-30.0)
[2022-03-29 08:20] LABS: Calcium 8.2 mg/dL (8.6-10.3); Magnesium 1.3 mg/dL (1.6-2.6); Phosphorous 5.6 mg/dL (2.7-4.5); Potassium 4.8 mEq/L (3.5-5.1)
[2022-03-29] MEDS: *HR* LORazepam 2 MG/ML VIAL IVP PRN ×3 (08:28→16:34)
[2022-03-29] MEDS ORDERED: cefTRIAXone 2,000 MG in 0.9 % Sodium Chloride 20 ML IVP SCH (09:00)
[2022-03-29] MEDS: Morphine Sulfate 2 MG/ML SYRINGE IVP PRN ×13 (09:24→23:47)
[2022-03-29] MEDS ORDERED: Atropine 1% Opth Drops 100 DROP/5 ML BOTTLE SL PRN (10:36)
[2022-03-29] MEDS: Atropine Sulfate 1% 40 DROP/2 ML BOTTLE SL PRN ×3 (12:04→20:53)
[2022-03-30] MEDS: Atropine Sulfate 1% 40 DROP/2 ML BOTTLE SL PRN ×4 (03:45→13:36)
[2022-03-30] MEDS: Morphine Sulfate 2 MG/ML SYRINGE IVP PRN ×8 (03:45→13:34)
[2022-03-30] MEDS: *HR* LORazepam 2 MG/ML VIAL IVP PRN ×2 (07:28→11:36)
[2022-03-30 08:44] VITALS: BP 106/71; TEMP 98; O2SAT 78
[2022-03-30 10:32] VITALS: PULSE 74
[2022-03-30] MEDS ORDERED: Glycopyrrolate 0.2 MG/ML VIAL IVP ONE (13:22)
[2022-03-30] MEDS ORDERED: Atropine Sulfate 1% 40 DROP/2 ML BOTTLE SL PRN (13:23)
== END 2022-03-30 17:00 | disposition expired | DRG 871 ==
LOC: EMEROOARM 19:48 → 2NNU 19:48 → SUATTDRO 03-29 03:04 → 2NNU 03-29 03:57
PROVIDERS: ADMIT Internal Medicine; ATTEND Internal Medicine